=== PATIENT | male | born 1985 | race African-American/Black ===

== ENCOUNTER 2018-01-19 21:17 | Emergency (ER) | payer SELFPAY ==
[~2018-01-19] VITALS: Ht 185.4 cm; Wt 88.5 kg
[2018-01-19 21:53] VITALS: BP 128/73
[2018-01-19] MEDS ORDERED: ONDANSETRON PF 4 MG/2 ML VIAL. IV ONE (22:15)
[2018-01-19] MEDS ORDERED: DICYCLOMINE 20 MG/2 ML AMPUL. IM ONE (22:15)
[2018-01-19 22:33] LABS: BASO % 1 % (0-3); EOS # 0.1 x10^3/uL (0.0-0.7); EOS % 1 % (0-3); HEMATOCRIT 44.3 % (39.0-53.0); HEMOGLOBIN 15.2 g/dL (13.0-17.5); LYMPH # 1.3 x10^3/uL (1.0-4.8); LYMPH % 14 % (24-48); MEAN CORPUSCULAR HEMOGLOBIN 30 pg (25-35); MEAN CORPUSCULAR HGB CONC 34 g/dL (31-37); MEAN CORPUSCULAR VOLUME 88 fL (79-100); MONO # 0.7 x10^3/uL (0.0-1.1); MONO % 8 % (0-9); NEUT # 7.2 x10^3uL (1.8-7.7); NEUT % 77 % (31-73); PLATELET COUNT 228 x10^3/uL (140-400); RED CELL DISTRIBUTION WIDTH 12.4 % (11.5-14.5); WHITE BLOOD COUNT 9.4 x10^3/uL (4.0-11.0)
[2018-01-19 22:41] LABS: CALCIUM 9.3 mg/dL (8.5-10.1); CREATININE 1.3 mg/dL (0.7-1.3); GFR 76.5; POTASSIUM 3.9 mmol/L (3.5-5.1)
[2018-01-19 22:46] LABS: ALBUMIN 3.9 g/dL (3.4-5.0); TOTAL BILIRUBIN 0.7 mg/dL (0.2-1.0)
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
[2018-01-19] MEDS ORDERED: ONDA4TAB10 SL (23:07)
[2018-01-19] MEDS ORDERED: DICY10CA3 PO (23:07)
== END 2018-01-19 23:35 | disposition home or self-care (01) ==
LOC: ER 21:17
DX: R11.2 Nausea with vomiting, unspecified (principal); R10.9 Unspecified abdominal pain; F17.200 Nicotine dependence, unspecified, uncomplicated; F10.20 Alcohol dependence, uncomplicated; Y90.9 Presence of alcohol in blood, level not specified
CPT/HCPCS: 36415; 80053; 83690; 85025; 96372; 96374; 99284; J0500; J2405

== ENCOUNTER 2020-05-16 12:56 | Emergency (ER) | payer SELFPAY ==
[~2020-05-16] VITALS: Ht 185.4 cm; Wt 102.0 kg
[~2020-05-16 12:56] MED LIST: DICY10CA3 PO; ONDA4TAB10 SL
[2020-05-16 13:47] LABS: BASO % 1 % (0-3); EOS % 1 % (0-3); HEMATOCRIT 41.2 % (39.0-53.0); LYMPH # 1.5 x10^3/uL (1.0-4.8); LYMPH % 32 % (24-48); MEAN CORPUSCULAR HEMOGLOBIN 30 pg (25-35); MEAN CORPUSCULAR HGB CONC 34 g/dL (31-37); MEAN CORPUSCULAR VOLUME 87 fL (79-100); MONO # 0.4 x10^3/uL (0.0-1.1); MONO % 8 % (0-9); NEUT # 2.8 x10^3/uL (1.8-7.7); NEUT % 59 % (31-73); PLATELET COUNT 264 x10^3/uL (140-400); RED BLOOD COUNT 4.72 x10^6/uL (4.30-5.70); RED CELL DISTRIBUTION WIDTH 12.6 % (11.5-14.5); WHITE BLOOD COUNT 4.8 x10^3/uL (4.0-11.0)
--- NOTE | 2020-05-16 13:55 | RAD ---
EXAM: XR CHEST 1V 05/16/2020 1:36 PM CLINICAL INDICATION: Cough, possible Covid COMPARISON: None available TECHNIQUE: AP upright view of the chest FINDINGS: The heart and mediastinum are normal. Lungs are well-expanded and clear. No consolidatio n, pleural effusion, or pneumothorax. Pulmonary vascularity is normal. The thoracic skeleton is int act. IMPRESSION: Normal chest radiograph. Electronically signed by: Cheri Murillo MD (05/16/2020 1:52 PM) [id number]
[2020-05-16 13:57] LABS: CALCIUM 9.5 mg/dL (8.5-10.1); CREATININE 0.9 mg/dL (0.7-1.3); GFR 114.9; POTASSIUM 4.2 mmol/L (3.5-5.1)
[2020-05-16 14:03] LABS: ALBUMIN 3.9 g/dL (3.4-5.0); ALBUMIN/GLOBULIN RATIO 0.9 (1.0-1.7); C-REACTIVE PROTEIN 0.7 mg/L (0-3.3); TOTAL BILIRUBIN 0.8 mg/dL (0.2-1.0); TOTAL PROTEIN 8.1 g/dL (6.4-8.2)
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
[2020-05-16] MEDS ORDERED: IOHEXOL 300 MG/ML 100ML VIAL. IV ONE (15:15)
[2020-05-16] MEDS ORDERED: IOHEXOL 240 MG/ML 50ML VIAL. PO ONE (15:15)
[2020-05-16] MEDS ORDERED: CONTRAST GIVEN. MC PRN (15:15)
[2020-05-16 16:10] VITALS: BP 168/90
--- NOTE | 2020-05-16 16:23 | RAD ---
Exam: CT abdomen and pelvis with contrast INDICATION: Abdominal pain TECHNIQUE: Sequential axial images through the abdomen and pelvis obtained following the administrati on of 75 mL of Isovue-370 IV contrast. Sagittal and coronal reformatted images were reconstructed fro m the axial data and reviewed. Comparisons: None FINDINGS: Heart size is normal. No pericardial visualized lung bases are clear. No pleural effusion. Liver, spleen, pancreas, gallbladder and adrenals are unremarkable. No perinephric inflammation or hydronephrosis. No renal or ureteral calculi are identified. Bladder is distended and appears thin-walled. Prostate is not enlarged. Large and small bowel are unremarkable. Appendix is normal. No free intra-abdominal air or fluid. No obstruction. Abdominal aorta has a normal course and caliber. Abdominal vasculature is patent. No enlarged intra-abdominal lymph nodes are identified. No suspicious osseous lesions or acute fractures. IMPRESSION: No acute process identified within the abdomen or pelvis. Exposure: One or more of the following in the visualized dose reduction techniques were utilized for this examination: 1. Automated exposure control 2. Adjustment of the MA and/or KV according to patient size 3. Use of iterative of reconstructive technique Electronically signed by: La Helms MD (05/16/2020 4:20 PM) [facility]
[2020-05-16] MEDS ORDERED: ESOM20CA56 PO (16:29)
[2020-05-16] MEDS ORDERED: SUCR1TAB35 PO (16:29)
--- NOTE | 2020-05-16 17:37 | EKG ---
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
--- NOTE | 2020-05-19 14:01 | NUR ---
IP: Attempted to contact pt concerning COVID results. No answer. Left a voicemail to return the call.
== END 2020-05-16 16:52 | disposition home or self-care (01) ==
LOC: ER 12:56
DX: R10.84 Generalized abdominal pain (principal); Z20.822 Contact with and (suspected) exposure to COVID-19; R11.2 Nausea with vomiting, unspecified; R19.7 Diarrhea, unspecified; F17.200 Nicotine dependence, unspecified, uncomplicated; F12.90 Cannabis use, unspecified, uncomplicated; F10.10 Alcohol abuse, uncomplicated; Z98.890 Other specified postprocedural states
CPT/HCPCS: 36415; 71045; 74177; 80053; 82550; 83615; 83880; 84484; 85025; 85379; 86140; 93005; 99285; C9803; Q9966; Q9967; U0003

== ENCOUNTER 2021-10-02 17:12 | Emergency (ER) | payer SELFPAY ==
[~2021-10-02] VITALS: Ht 185.4 cm; Wt 104.5 kg
[~2021-10-02 17:12] MED LIST changes: +ESOM20CA56 PO; +SUCR1TAB35 PO
[2021-10-02 17:17] VITALS: BP 159/80
[2021-10-02] MEDS ORDERED: tiZANidine 4 MG TABLET. PO ONE (18:00)
[2021-10-02] MEDS ORDERED: methylPREDNISolone SOD SUCC PF 125 MG/2 ML VIAL. IV ONE (18:00)
[2021-10-02 18:04] LABS: BASO % 1 % (0-3); EOS # 0.1 x10^3/uL (0.0-0.7); EOS % 2 % (0-3); HEMATOCRIT 38.8 % (39.0-53.0); HEMOGLOBIN 13.1 g/dL (13.0-17.5); LYMPH # 1.7 x10^3/uL (1.0-4.8); LYMPH % 35 % (24-48); MEAN CORPUSCULAR HEMOGLOBIN 30 pg (25-35); MEAN CORPUSCULAR HGB CONC 34 g/dL (31-37); MEAN CORPUSCULAR VOLUME 88 fL (79-100); MONO # 0.5 x10^3/uL (0.0-1.1); MONO % 11 % (0-9); NEUT # 2.4 x10^3/uL (1.8-7.7); NEUT % 50 % (31-73); PLATELET COUNT 212 x10^3/uL (140-400); RED BLOOD COUNT 4.39 x10^6/uL (4.30-5.70); RED CELL DISTRIBUTION WIDTH 12.4 % (11.5-14.5); WHITE BLOOD COUNT 4.7 x10^3/uL (4.0-11.0)
[2021-10-02 18:14] LABS: CALCIUM 8.8 mg/dL (8.5-10.1); CREATININE 1.2 mg/dL (0.7-1.3); POTASSIUM 4.5 mmol/L (3.5-5.1)
--- NOTE | 2021-10-02 18:15 | RAD ---
Ribs left with PA chest History: Pain PA view of the chest and dedicated views of the left ribs were obtained. The heart and pulmonary vessels appear normal. The lungs and pleural margins are clear. The visualized osseous structures appear intact. Impression: No acute findings. No evidence of a bony displaced rib fracture. Electronically signed by: Tonny Julien III, MD (10/02/2021 6:13 PM) [facility]
[2021-10-02 18:20] LABS: ALBUMIN 3.6 g/dL (3.4-5.0); MAGNESIUM 1.8 mg/dL (1.8-2.4); TOTAL BILIRUBIN 0.8 mg/dL (0.2-1.0); TOTAL PROTEIN 7.3 g/dL (6.4-8.2)
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
--- NOTE | 2021-10-02 18:43 | RAD ---
Exam: CT of lumbar spine without contrast INDICATION: Pain with tingling in right leg, Back pain TECHNIQUE: Sequential axial images through the lumbar spine obtained without IV contrast. Sagittal an d coronal reformatted images were reconstructed from the axial data and reviewed. Exposure: One or more of the following in the visualized dose reduction techniques were utilized for this examination: 1. Automated exposure control 2. Adjustment of the MA and/or KV according to patient size 3. Use of iterative of reconstructive technique Comparisons: None FINDINGS: Vertebral body heights and alignment are well-maintained. Fracture to the lumbar spine is not identified. No significant spondylotic changes lumbar spine. Visualized paraspinal soft tissues are unremarkable. IMPRESSION: Negative CT lumbar spine for acute traumatic injury Electronically signed by: La Helms MD (10/02/2021 6:41 PM) [facility]
[2021-10-02 20:10] LABS: BARBITURATES NEG (NEG); BENZODIAZEPINES NEG (NEG); CANNABINOIDS POS (NEG); COCAINE NEG (NEG); METHADONE NEG (NEG); OPIATES NEG (NEG); PHENCYCLIDINE NEG (NEG)
[2021-10-02 20:11] LABS: AMPHETAMINE/METHAMPHETAMINE POS (NEG)
== END 2021-10-02 21:18 | disposition left against medical advice (07) ==
LOC: ER 17:12
DX: R77.8 Other specified abnormalities of plasma proteins (principal); G62.9 Polyneuropathy, unspecified; F15.10 Other stimulant abuse, uncomplicated; F17.200 Nicotine dependence, unspecified, uncomplicated; G89.29 Other chronic pain
CPT/HCPCS: 36415; 71101; 72131; 80053; 80307; 83735; 83880; 84484; 85025; 85379; 96374; 99285; J2930